=== PATIENT | male | born 1975 | race Caucasian/White ===

== ENCOUNTER 2017-10-27 02:05 | Emergency (ER) | payer OTHER, SELFPAY ==
[~2017-10-27] VITALS: Ht 188 cm; Wt 107.8 kg
[2017-10-27 02:49] LABS: HEMATOCRIT 44.8 % (39.2-51.8); HEMOGLOBIN 15.3 g/dL (13.7-18.0); WHITE BLOOD COUNT 14.3 x10^3/uL (3.4-10)
[2017-10-27 03:01] LABS: ASPARTATE AMINO TRANSFERASE 40 U/L (15-37); BLOOD UREA NITROGEN 16 mg/dL (7-18)
[2017-10-27 03:10] LABS: ACETAMINOPHEN < 2 mcg/mL (10-30)
[2017-10-27 06:01] VITALS: BP 133/74
== END 2017-10-27 06:19 | disposition home or self-care (01) ==
LOC: ED 03:59
DX: R41.82 Altered mental status, unspecified (principal); R41.0 Disorientation, unspecified
CPT/HCPCS: 36415; 70450; 80053; 80307; 80329; 82140; 85025; 99285; G0479; G0480